=== PATIENT | female | born 1980 | race Two or more races ===

== ENCOUNTER 2019-04-12 13:04 | Emergency (ER) | payer BC, OTHER ==
[2019-04-12] MEDS ORDERED: ACETAMINOPHEN 500 MG TAB PO ONE ×2 (14:00→14:15)
[2019-04-12 16:18] VITALS: BP 106/45
== END 2019-04-12 17:59 | disposition home or self-care (01) ==
LOC: ER 13:04
DX: J06.9 Acute upper respiratory infection, unspecified (principal)
CPT/HCPCS: 87070; 87804; 87880